=== PATIENT | female | born 1990 | race Caucasian/White ===

== ENCOUNTER 2019-09-28 20:53 | Observation (INO) | payer MEDICAID, SELFPAY ==
--- NOTE | ~2019-09-28 | CT_ITS ---
EXAMINATION: CT abdomen pelvis w con DATE: 09/28/2019 21:40 INDICATION: Right flank pain. History of urinary tract infections. TECHNIQUE: Computed tomography (CT) of the abdomen and pelvis was performed with 100 cc Omnipaque 350 intravenous contrast. Automated exposure control and iterative reconstruction technique were employe d. Exam dose: 801.23 mGy-cm total exam DLP. COMPARISON: 01/23/2018 CT abdomen pelvis FINDINGS: Normal heart size. No pericardial or pleural effusion. The lung bases are clear of infiltra te or consolidation. Focal hepatic steatosis near the fissure for the ligamentum teres. No hepatic space-occupying mass le momo. The gallbladder is unremarkable. No bile duct or pancreatic duct dilatation. No pancreatic mass lesion or calcification is evident. Normal splenic size. Normal morphology of the adrenal glands. Left renal scarring, likely due to chronic pyelonephritis. No left urinary tract calculus or hydroure teronephrosis. There is moderately severe right hydroureteronephrosis with thickening and enhancement of the right r enal pelvis and ureter. There is narrowing of the distal right ureter. There is thickening of the wal l of the urinary bladder and mild pericystic stranding. Findings suggest acute cystitis and possible right-sided ascending urinary tract infection. Distal right ureteral stricture is not excluded. Obstr uctive pyelonephrosis is considered a urologic emergency. Urology consultation is recommended. IUD in uterus. There are 2 peripherally enhancing approximately 1.3 cm left ovarian follicles. No bowel obstruction or intraperitoneal free air. There are bilateral L5 pars interarticularis defects. No suspicious osteolytic or osteoblastic lesion s are noted. IMPRESSION: Appendicitis and possible right ascending urinary tract infection. Cannot exclude distal right ureteral stricture with pyelonephrosis. Urologic urgent consultation is recommended. Left chronic pyelonephritis IUD in uterus Bilateral L5 pars interarticularis defects Reviewed, dictated and finalized at [facility]. Reviewed, dictated and finalized at [facility]. 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 Cannot exclude distal right ureteral stricture with pyelonephrosis. Urologic u rgent consultation is recommended. Left chronic pyelonephritis IUD in uterus Bilateral L5 pars interarticularis defects
--- NOTE | ~2019-09-28 | US_ITS ---
EXAMINATION: US renal BI EXAM DATE: 09/29/2019 11:09 INDICATION: Pyelonephritis. TECHNIQUE: Multiple grayscale and Doppler images of the kidneys were obtained (by a technologist who performed the scan) and subsequently reviewed. There is no prior study for comparison. FINDINGS: Right kidney: There is normal contour and echogenicity. It measures 12.0 x 5.1 x 6.0 centimeters. T here are no focal renal lesions identified. There is mild right-sided hydronephrosis. Left kidney: There is normal contour and echogenicity. It measures 12.5 x 4.1 x 4.6 centimeters. Th ere are no focal renal lesions identified. There is no hydronephrosis. Bladder unremarkable. IMPRESSION: 1. Mild right hydronephrosis. Reviewed, dictated and finalized at [facility]. Y LINE TECHNICIAN
[2019-09-28 20:55] VITALS: BP 133/91; PULSE 93; RESP 20; TEMP 36.8; O2SAT 100
--- NOTE | 2019-09-28 20:58 | ED.ABDPAIN ---
HPI - Abdominal Pain General Chief Complaint: Abdominal Pain Stated Complaint: R Flank Pain Time Seen by Provider: 09/28/19 20:58 Source: patient Mode of arrival: ambulatory Limitations: no limitations History of Present Illness HPI narrative: The pt is a 29 y/o female who presents to the ED with c/o rt flank pain that began 2 weeks ago. The pt states that she got a UTI 2 weeks ago but chose not to go to the doctors. Her sx have progressed and she is now very uncomfortable. The pt reports dysuria, nausea, dry heaving, and hematuria, but denies vomiting, cough, or nasal congestion. She has a PMHx of depression and anxiety. MD elicited complaint: flank pain (rt) Onset (ago): week(s) (2) Location: R flank Associated symptoms: nausea and other (dysuria, dry heaving, hematuria) Related Data Allergies Allergy/AdvReac Type Severity Reaction Status Date / Time ceftriaxone Allergy Unknown RASH Verified 04/22/18 11:10 Review of Systems Review of Systems: All systems reviewed & are unremarkable except as noted in HPI and below ENT: Denies nasal congestion Respiratory: Respiratory: Denies cough Gastrointestinal: Gastrointestinal: Reports nausea, Denies vomiting and Reports other (dry heaving) Genitourinary: Genitourinary: Reports hematuria, Reports dysuria and Reports flank pain (rt) PMFSH Past Medical History Medical History Anemia Anxiety Depression Hypoglycemia Surgical History Surgical History H/O myringoplasty History of total knee replacement (TKR) Hx of appendectomy Hx of section Family History Family History (Updated 09/28/19 @ 23:10 by Allan Suggs MD) Mother Colon cancer Social History Social History Smoking status: Never smoker Gender identity (if verbalized by the patient): Female Exam Const: General: healthy appearing and no acute distress Nutritional Appearance: well nourished HENMT: Mouth: Yes lip normal and Yes moist mucous membranes Eyes: Conjunctivae: conjunctivae normal Pupils: Equal, round and reactive pupils present Resp: Effort & Inspection: normal respiratory effort Auscultation: clear to auscultation bilaterally Cardio: Rate: regular rate Rhythm: regular rhythm Heart sounds: no murmurs GI: GI Palp: Yes Soft to palpation and Yes Tenderness to palpation present (GI) (suprapubic) Auscultation: normal bowel sounds : General: Yes CVA tenderness on the right Back/Spine/Pelvis: Back: CVA tenderness (rt) and other (full ROM) Skin: General skin exam: normal color, dry skin and other (warm) Neuro: General: patient oriented x3 Speech: normal speech Extrem: General: full ROM Psych: Mental Status: mental status grossly normal Affect: normal affect Course Vital Signs Vital signs: Vital Signs Temperature 36.8 C 09/28/19 20:55 Pulse Rate 93 09/28/19 20:55 Respiratory Rate 20 09/28/19 20:55 Blood Pressure 133/91 H 09/28/19 20:55 Pulse Oximetry 100 09/28/19 20:55 Temperature 36.8 C 09/28/19 20:55 Pulse Rate 89 09/28/19 23:20 Respiratory Rate 16 09/28/19 23:20 Blood Pressure 131/82 09/28/19 23:20 Pulse Oximetry 99 09/28/19 23:20 MDM - Abdominal Pain Differential Diagnosis Differential diagnosis: Likely calculus of kidney and other (pyelonephritis, UTI) Medical Records Attestation: I reviewed the patient's medical records. Lab Data Attestation: I reviewed the patient's lab results. Result diagrams: 09/28/19 21:21 09/28/19 21:21 Labs: Lab Results 09/28/19 09/28/19 09/28/19 Range/Units 21:21 21:21 21:24 WBC 11.7 H (4.5-10.0) K/mm3 RBC 4.94 (4.2-5.4) M/mm3 Hgb 14.9 (12.0-15.0) g/dL Hct 43.2 (37.0-47.0) % MCV 87.4 (80-100) fl MCH 30.2 (26-34) pg MCHC 34.5 (32-36) g/dl RDW 12.0 (11.5-14.5)
[2019-09-28 21:28] LABS: Basophils Percent Auto 0.3 % (0.2-1.2); Eosinophils Absolute Auto 0.1 K/mm3 (0-0.3); Eosinophils Percent Auto 0.8 % (0-4.4); Hematocrit 43.2 % (37.0-47.0); Hemoglobin 14.9 g/dL (12.0-15.0); Immature Granulocyte Absolute 0.04 K/mm3 (0.00-0.031); Immature Granulocyte Percent A 0.3 % (0-0.5); Lymphocytes Absolute Auto 2.22 K/mm3 (0.9-3.2); Mean Corpuscular HGB Conc 34.5 g/dl (32-36); Mean Corpuscular Hemoglobin 30.2 pg (26-34); Mean Corpuscular Volume 87.4 fl (80-100); Mean Platelet Volume 10.4 fl (7.4-10.4); Monocytes Percent Auto 8.4 % (2.6-8.5); Neutrophils Absolute Auto 8.3 K/mm3 (1.3-6.7); Neutrophils Percent Auto 71.2 % (45.5-73.1); Platelet Count Result 341 k/mm3 (150-375); Red Blood Count 4.94 M/mm3 (4.2-5.4); White Blood Count 11.7 K/mm3 (4.5-10.0)
[2019-09-28] MEDS: ONDANSETRON INJ 4 MG/2 ML VIAL IV PUSH (21:33)
[2019-09-28] MEDS: SODIUM CHLORIDE 0.9% IV 1,000 ML 999 ML IV CONT (21:33)
[2019-09-28] MEDS: KETOROLAC 30 MG/ML VIAL (*BKC) IV PUSH (21:33)
--- NOTE | 2019-09-28 21:34 | PC.NURSE ---
pt to ct via stretcher
[2019-09-28 21:39] LABS: Add Urine Microscopic? YES; Appearance Urine Cloudy (Clear); Bilirubin Urine Negative (Negative); Blood Urine 2+ (Negative); Color Urine Yellow (Yellow); Glucose Urine UA Negative (Negative); Ketones Urine Negative (Negative); Leukocyte Esterase Ur 3+ LEU/UL (Negative); Mucus Urine Rare /lpf; Nitrate Urine Positive (Negative); Protein Urine 3+ mg/dL (Negative); RBC Urine >75 /hpf (0-2); Specific Grav Ur 1.023 (1.001-1.035); Squamous Epithelial Cell Urine Many /hpf (Few); Urobilinogen Urine Negative mg/dL (<2.0); WBC Clumps Urine Present /HPF; WBC Urine >75 /hpf
[2019-09-28 21:40] LABS: Albumin Level 4.6 g/dL (3.5-5.1); Alkaline Phosphatase 50 U/L (38-126); Aspartate Amino Transferase 22 U/L (14-36); Bilirubin,Total 0.6 mg/dL (0.2-1.3); Blood Urea Nitrogen 11 mg/dL (7-17); Calcium 9.4 mg/dL (8.4-10.2); Carbon Dioxide 17 mmol/L (22-30); Chloride 106 mmol/L (98-107); Estimated Glomerular Filt Rate > 60; Glucose 117 mg/dL (65-105); Potassium 3.8 mmol/L (3.4-5.0); Sodium 139 mmol/L (137-145)
[2019-09-28 21:47] LABS: Alanine Aminotransferase 29 U/L (4-35)
[2019-09-28 21:58] VITALS: BP 122/82; PULSE 83; RESP 15; O2SAT 99
[2019-09-28 23:00] VITALS: BP 129/82; PULSE 82; RESP 16; O2SAT 99
--- NOTE | 2019-09-28 23:01 | PM.IMHP ---
H&P: HPI History of Present Illness Chief complaint: Right flank pain and dysuria for 2 weeks+ Narrative: This is a 29 year old female with known history of prevoius UTIs, kidney infections and renal stones who presented to the hospital with a complaint of 2 weeks of urinary symptoms including burning urination and urinary hesitancy. She started to develop right sided flank pain and has noticed decreased urine output and hematuria. Associated symptoms include fever, nausea, and decreased appetite. The patient was evaluated in the ER tonight and CT abd/pelvis was obtained which demonstrated an ascending urinary tract infection versus ureteral stricture with obstructive pyonephrosis. The patent has been started on IV antibiotics in the ER tonight and Urology was consulted by the ER provider. Urology has asked that we admit the patient to the hospital and they will evaluate the patient in the mornini. She has no other complaints tonight. Review of Systems Review of Systems: All systems reviewed & are unremarkable except as noted in HPI and below PMFSH Past Medical History Medical History Anemia Anxiety Depression Hypoglycemia Surgical History Surgical History H/O myringoplasty History of total knee replacement (TKR) Hx of appendectomy Hx of section Family History Family History Mother Colon cancer Social History Social History Smoking status: Current some day smoker Tobacco type: e-cigarettes Alcohol intake: never Substance use: never Gender identity (if verbalized by the patient): Female Spiritual care concerns: No Agree to blood products: Yes Meds Home Medications and Allergies Home Medications Medication Instructions Recorded Confirmed Type Zantac 150 mg PO BID 09/29/19 09/29/19 History buspirone 15 mg PO TID 09/29/19 09/29/19 History citalopram 40 mg PO DAILY 09/29/19 09/29/19 History cyanocobalamin (vitamin B-12) 1,000 mcg PO DAILY 09/29/19 09/29/19 History famotidine 20 mg PO BID 09/29/19 09/29/19 History hydroxyzine HCl 50 mg PO HS 09/29/19 09/29/19 History prazosin 1 mg PO QID 09/29/19 09/29/19 History Allergies Allergy/AdvReac Type Severity Reaction Status Date / Time ceftriaxone Allergy Unknown RASH Verified 04/22/18 11:10 Vital Signs Vital Signs - 24 hr 09/28/19 20:55 09/28/19 21:58 Temperature 36.8 C Pulse Rate 93 60 Respiratory Rate 20 15 Blood Pressure 133/91 H 122/82 Pulse Oximetry 100 99 Exam Const: General: cooperative, healthy appearing, no acute distress, alert and awake Nutritional Appearance: well nourished Orientation/consciousness: patient oriented x3 HENMT: Head: normal to inspection General nose exam: Normal external nose present Face and sinus: normal facial exam Mouth: Yes Normal oral and palatal mucosa present and Yes oropharynx normal Eyes: Pupils: Equal, round and reactive pupils present EOM: EOMs intact bilaterally Neck: Neck: supple and no JVD Thyroid: thyroid normal Lymphatic: lymphadenopathy not noted Resp: Effort & Inspection: normal respiratory effort Auscultation: clear to auscultation bilaterally Cardio: Rate: regular rate Rhythm: regular rhythm Heart sounds: no murmurs GI: Inspection: normal to inspection Auscultation: normal bowel sounds Back/Spine/Pelvis: Back: CVA tenderness (right side+) Skin: General skin exam: normal color and no rashes or lesions noted Neuro: General: patient oriented x3 Cranial nerves: Yes CN's II-XII intact bilaterally and Yes Equal, round and reactive pupils present Speech: normal speech Motor exam (neuro): 5/5 motor strength present throughout Sensory Exam: normal sensation Extrem: General: normal to inspection and no edema Psych: Mental Status: mental statu
[2019-09-28 23:20] VITALS: BP 131/82; PULSE 89; RESP 16; O2SAT 99
[2019-09-28 23:40] VITALS: BP 110/58; PULSE 81; RESP 16; TEMP 36.7; O2SAT 100; BMI 34.0
--- NOTE | 2019-09-28 23:56 | PC.NURSE ---
This patient, Dipti Downs, was admitted to Medical Room 253-01. Patient/family oriented to hospital policies and general routines including ID bracelet, bed and alarms, visiting hours, pain management, procedures, bathroom and other care routines, personal items, smoking policy, room service/diet, and visiting hours. Valuables list has been completed. Information on how to activate the Rapid Response Team has been discussed. Patient/Family are encouraged to report perceived risks to care and to ask questions if they do not understand what they are told or what they should do.
[2019-09-29] MEDS: PRAZOSIN HCL 1 MG CAPSULE PO ×5 (01:40→21:23)
[2019-09-29] MEDS: LACTATED RINGERS 1,000 ML 125 ML IV CONT ×3 (01:49→16:03)
[2019-09-29] MEDS: MELATONIN 3 MG TABLET PO ×2 (01:49→21:22)
[2019-09-29] MEDS: busPIRone HCL 5 MG TABLET PO ×4 (01:50→17:37)
[2019-09-29] MEDS: hydrOXYzine HCL 25 MG TABLET 50 MG PO (01:50)
[2019-09-29] MEDS: busPIRone HCL 10 MG TABLET PO ×4 (01:50→17:37)
[2019-09-29 05:23] LABS: Basophils Percent Auto 0.2 % (0.2-1.2); Eosinophils Absolute Auto 0.1 K/mm3 (0-0.3); Eosinophils Percent Auto 0.9 % (0-4.4); Hematocrit 39.4 % (37.0-47.0); Hemoglobin 13.3 g/dL (12.0-15.0); Immature Granulocyte Absolute 0.04 K/mm3 (0.00-0.031); Immature Granulocyte Percent A 0.5 % (0-0.5); Lymphocytes Absolute Auto 2.76 K/mm3 (0.9-3.2); Lymphocytes Percent Auto 32.4 % (18.3-44.2); Mean Corpuscular HGB Conc 33.8 g/dl (32-36); Mean Corpuscular Volume 88.7 fl (80-100); Mean Platelet Volume 10.5 fl (7.4-10.4); Monocytes Percent Auto 11.3 % (2.6-8.5); Neutrophils Absolute Auto 4.7 K/mm3 (1.3-6.7); Neutrophils Percent Auto 54.7 % (45.5-73.1); Platelet Count Result 264 k/mm3 (150-375); Red Blood Count 4.44 M/mm3 (4.2-5.4); Red Cell Distribution Width 11.9 % (11.5-14.5); White Blood Count 8.5 K/mm3 (4.5-10.0)
[2019-09-29 05:33] LABS: Blood Urea Nitrogen 10 mg/dL (7-17); Calcium 8.5 mg/dL (8.4-10.2); Carbon Dioxide 22 mmol/L (22-30); Chloride 106 mmol/L (98-107); Estimated CRCL calculation 94 ml/min; Estimated Glomerular Filt Rate > 60; Glucose 98 mg/dL (65-105); Sodium 137 mmol/L (137-145)
[2019-09-29] MEDS: FAMOTIDINE 20 MG TABLET PO ×2 (09:32→17:37)
[2019-09-29] MEDS: CYANOCOBALAMIN 1,000 MCG TABLET 1000 MCG PO (09:33)
[2019-09-29] MEDS: ONDANSETRON INJ 4 MG/2 ML VIAL IV PUSH ×2 (11:02→17:56)
--- NOTE | 2019-09-29 11:15 | WPDURCON ---
Assessment and Plan Assessment and plan (1) Hydronephrosis: Code(s): N13.30 - Unspecified hydronephrosis Status: Acute Assessment and Plan: Renal ultrasound to be repeated this morning. Will also get a Lasix renal scan to look for obstruction. At present she seems very stable. She is afebrile. She has a normal white blood cell count. Depending on results of diagnostic imaging may consider right ureteral stent today. Other options would be to observe her on IV antibiotics if she had a similar episode 4 years ago which resolved without intervention. (2) Abnormal urinalysis: Code(s): R82.90 - Unspecified abnormal findings in urine Status: Acute Assessment and Plan: Urine blood cultures are pending. She should be maintained on broad-spectrum antibiotics pending his cultures. Urology Consult Note HPI Date Seen: 09/29/19 Requesting Physician: SHARON Moore Primary Care Provider: UNKNOWN,DOCTOR Consult Narrative Narrative: Dipti Downs is a 29 year old female I am seeing at the request of the hospitalist service for her right hydronephrosis. She has had a weak history of mild dysuria as well as urgency and frequency which later turned into right flank pain. This prompted in visit to the emergency room. A CT scan was done which showed a right hydronephrosis without obstructing lesion. She also had ureteral thickening consistent with possible infection. She states 3 days ago she had a temperature of 101? but has not had a fever since. She endorses some urinary symptoms including dysuria as well as urgency and frequency. Shows similar episode 4 years ago with right hydronephrosis. She states that she was in the hospital and placed on IV antibiotics and all issues resolved over a few days. No intervention was needed. She also has history of stone disease which have all passed spontaneously. She does not get frequent urinary tract infections. She states she gets 1 every 1-2 years. She currently appears very stable. She is afebrile and has a normal white blood cell count. Review of Systems Review of Systems: All systems reviewed & are unremarkable except as noted in HPI and below Constitutional: Constitutional: Reports as per HPI Eyes: Comments: She wears glasses Respiratory: Respiratory: Reports no additional respiratory complaints Genitourinary: Genitourinary: Reports nocturia, Reports dysuria and Reports flank pain PMFSH Past Medical History Medical History Anemia Anxiety Depression Hypoglycemia Surgical History Surgical History H/O myringoplasty History of total knee replacement (TKR) Hx of appendectomy Hx of section Family History Family History Mother Colon cancer Social History Social History Smoking status: Current some day smoker Tobacco type: e-cigarettes Alcohol intake: never Substance use: never Gender identity (if verbalized by the patient): Female Spiritual care concerns: No Agree to blood products: Yes Meds Home Medications and Allergies Home Medications Medication Instructions Recorded Confirmed Type Zantac 150 mg PO BID 09/29/19 09/29/19 History buspirone 15 mg PO TID 09/29/19 09/29/19 History citalopram 40 mg PO DAILY 09/29/19 09/29/19 History cyanocobalamin (vitamin B-12) 1,000 mcg PO DAILY 09/29/19 09/29/19 History famotidine 20 mg PO BID 09/29/19 09/29/19 History hydroxyzine HCl 50 mg PO HS 09/29/19 09/29/19 History prazosin 1 mg PO QID 09/29/19 09/29/19 History Allergies Allergy/AdvReac Type Severity Reaction Status Date / Time ceftriaxone Allergy Unknown RASH Verified 04/22/18 11:10 Vital Signs Vital Signs - 24 hr 09/28/19 20:55 09/28/19 21:58 09/28/19 23:00 Temperature 98.2 F
[2019-09-29 11:30] VITALS: PULSE 64
[2019-09-29] MEDS: CITALOPRAM HYDROBROMIDE 20 MG TABLET 40 MG PO (11:58)
[2019-09-29 12:00] VITALS: PULSE 73
[2019-09-29 14:00] VITALS: BP 105/85; PULSE 72; RESP 16; TEMP 36.6; O2SAT 99
--- NOTE | 2019-09-29 14:31 | PM.IMPN ---
Progress Note: A&P Assessment and Plan (1) Pyelonephritis: Code(s): N12 - Tubulo-interstitial nephritis, not specified as acute or chronic Status: Suspected Assessment and Plan: Abnormal urinalysis with evidence of possible right ascending urinary tract infection on imaging. On arrival, CT showed moderately severe right hydronephrosis, now renal ultrasound this morning reads mild right hydronephrosis. Urology consulted - appreciate Dr Balderas's recommendations. Patient is allergic to Rocephin and was started on IV levaquin in the ED. Continue IV levaquin while awaiting urine and blood cultures. Unfortunately blood cultures were obtained after initiation of antibiotics which may alter results. (2) Hydronephrosis: Qualifiers: Hydronephrosis type: unspecified Qualified Code(s): N13.30 - Unspecified hydronephrosis Code(s): N13.30 - Unspecified hydronephrosis Status: Acute Assessment and Plan: See above. Improved after IV fluids and antibiotic initiation. (3) Depression: Qualifiers: Depression Type: unspecified Qualified Code(s): F32.9 - Major depressive disorder, single episode, unspecified Code(s): F32.9 - Major depressive disorder, single episode, unspecified Status: Chronic Assessment and Plan: Continue home buspar and celexa. Monitor telemetry due to quinolone use. Subjective Date/time seen: 09/29/19 1230 Interval history: Ms. Mcclure is a 29yo F admitted with UTI and possible pyelonephritis. She reports feeling tired today. R flank pain is still present but improved. She has not had much oral intake so far today and has had nausea and some vomiting. She denies chest pain, shortness of breath, or calf tenderness. Review of Systems Review of Systems: Narrative: Twelve systems were reviewed with pertinent positives and negatives as per HPI. Exam Narrative: Exam Narrative: General: Female resting supine in bed in no acute distress. HEENT: Normocephalic, EOMI, oral mucosa moist. Cardiovascular: Rate and rhythm are regular. Respiratory: Lungs clear to auscultation all jeter. Non-labored breathing. Abdomen: Soft, non-distended, bowel sounds present, R sided abdominal and R flank tenderness to palpation without guarding. Extremities: Peripheral pulses intact. No edema or pain to palpation. Neuro: No focal neurological deficits. Speech is clear. Objective Data Vital Signs Vital Signs: Last Vital Signs Temp 97.9 F 09/29/19 14:00 Pulse 72 09/29/19 14:00 Resp 16 09/29/19 14:00 BP 105/85 09/29/19 14:00 Pulse Ox 99 09/29/19 14:00 Intake/Output Intake/Output: Intake & Output 09/26/19 09/27/19 09/28/19 09/29/19 23:59 23:59 23:59 23:59 Intake Total 150 1250 Output Total 400 Balance 150 850 Meds/Results Medications: Active Medications Generic Name Dose Route Start Last Admin Trade Name Tadeoq PRN Reason Stop Dose Admin Buspirone HCl 10 mg 09/29/19 01:45 09/29/19 13:06 Buspar PO 10 mg TID GENNARO Administration Buspirone HCl 5 mg 09/29/19 01:45 09/29/19 13:06 Buspar PO 5 mg TID GENNARO Administration Citalopram Hydrobromide 40 mg 09/30/19 09:00 Celexa PO QAM GENNARO Cyanocobalamin 1,000 mcg 09/29/19 09:00 09/29/19 09:33 Vitamin B-12 Tab PO 1,000 mcg DAILY GENNARO Administration Famotidine 20 mg 09/29/19 09:00 09/29/19 09:32 Pepcid PO 20 mg BID GENNARO Administration Hydroxyzine HCl 50 mg 09/29/19 01:40 09/29/19 01:50 Atarax Tablet PO 50 mg HS GENNARO Administration Lactated Ringer's 1,000 mls @ 125 mls/hr 09/28/19 22:35 09/29/19 07:45 Lr - Lactated Ringers Iv IV CONT 125 mls/hr .Q8H GENNARO Administration Levofloxacin/Dextrose 750 mg in 150 mls @ 100 mls/hr 09/29/19 21:00 Levaquin 750 Mg/D5w 150 Ml IVPB Q24H GENNARO Melatonin 3 mg 09/29/19 21:0
[2019-09-29 16:00] VITALS: PULSE 79
[2019-09-29 20:00] VITALS: PULSE 77
[2019-09-29] MEDS: KETOROLAC 15 MG/ML VIAL (*BKC) IV PUSH (21:22)
[2019-09-29 22:00] VITALS: BP 116/57; PULSE 76; RESP 20; TEMP 36.8; O2SAT 99
[2019-09-30 00:20] VITALS: PULSE 78
[2019-09-30] MEDS: LACTATED RINGERS 1,000 ML 125 ML IV CONT ×2 (00:26→08:10)
[2019-09-30 04:00] VITALS: PULSE 70
[2019-09-30 05:49] LABS: Hematocrit 38.3 % (37.0-47.0); Hemoglobin 12.9 g/dL (12.0-15.0); Mean Corpuscular HGB Conc 33.7 g/dl (32-36); Mean Corpuscular Hemoglobin 30.1 pg (26-34); Mean Corpuscular Volume 89.3 fl (80-100); Mean Platelet Volume 10.7 fl (7.4-10.4); Platelet Count Result 243 k/mm3 (150-375); Red Blood Count 4.29 M/mm3 (4.2-5.4); Red Cell Distribution Width 12.2 % (11.5-14.5); White Blood Count 7.7 K/mm3 (4.5-10.0)
[2019-09-30 06:00] VITALS: BP 113/60; PULSE 73; RESP 20; TEMP 36.2; O2SAT 99
[2019-09-30] MEDS: ONDANSETRON INJ 4 MG/2 ML VIAL IV PUSH (06:20)
[2019-09-30 06:28] LABS: Blood Urea Nitrogen 12 mg/dL (7-17); Calcium 8.6 mg/dL (8.4-10.2); Carbon Dioxide 26 mmol/L (22-30); Chloride 105 mmol/L (98-107); Estimated CRCL calculation 94 ml/min; Estimated Glomerular Filt Rate > 60; Glucose 91 mg/dL (65-105); Magnesium 1.9 mg/dL (1.6-2.3); Phosphorus 3.9 mg/dL (2.5-4.5); Potassium 4.3 mmol/L (3.4-5.0); Sodium 138 mmol/L (137-145)
[2019-09-30 08:00] VITALS: PULSE 79
[2019-09-30] MEDS: PRAZOSIN HCL 1 MG CAPSULE PO ×2 (08:12→13:40)
[2019-09-30] MEDS: CITALOPRAM HYDROBROMIDE 20 MG TABLET 40 MG PO (08:12)
[2019-09-30] MEDS: CYANOCOBALAMIN 1,000 MCG TABLET 1000 MCG PO (08:12)
[2019-09-30] MEDS: busPIRone HCL 5 MG TABLET PO ×2 (08:12→13:40)
[2019-09-30] MEDS: busPIRone HCL 10 MG TABLET PO ×2 (08:12→13:40)
[2019-09-30] MEDS: FAMOTIDINE 20 MG TABLET PO (08:13)
[2019-09-30 14:00] VITALS: BP 95/46; PULSE 71; RESP 18; TEMP 37.1; O2SAT 98
--- NOTE | 2019-09-30 14:18 | PM.DS ---
DS: Diagnosis Admitting Diagnosis Admitting Diagnosis: Chronic obstructive pyelonephritis Discharge Diagnosis (1) Pyelonephritis: Code(s): N12 - Tubulo-interstitial nephritis, not specified as acute or chronic Status: Suspected (2) Hydronephrosis: Qualifiers: Hydronephrosis type: unspecified Qualified Code(s): N13.30 - Unspecified hydronephrosis Code(s): N13.30 - Unspecified hydronephrosis Status: Acute (3) Depression: Qualifiers: Depression Type: unspecified Qualified Code(s): F32.9 - Major depressive disorder, single episode, unspecified Code(s): F32.9 - Major depressive disorder, single episode, unspecified Status: Chronic DS: Summary Hospital Course Reason for hospitalization: Pyelonephritis Hospital Course: Patient is a 29-year-old female who presented emergency room for abdominal pain/flank pain. Vitals in the ER were temperature 36.8?, pulse 93, respiratory rate 20, blood pressure 133/91, pulse ox 100 on room air. Initial white blood cell count 11.7. BMP within normal limits exception of CO2 which was low 17 which improved with treatment. Cystitis with possible right ascending UTI/pyelonephritis. There is a possibility of stricture/obstruction so she got renal ultrasound the next day which showed improved hydronephrosis with no stricture. The patient was started on Levaquin and received 2 days of IV antibiotics. Her blood culture had no growth to date it at discharge and will be monitored until finalized. Because of her citalopram she was discharged on Bactrim x 10 days. She was educated about had a prevent UTIs. Overall the patient's pain had improved and she was ready for discharge. She was educated about the worrisome signs and symptoms come back to emergency room for and was discharged in stable condition. Status at Discharge Functional status at discharge: independent ambulation Overall status at discharge: patient is back to baseline Time Spent with Patient Time attestation: Total time spent providing and/or coordinating discharge services:34 min Time spent: Greater than 30 minutes Exam Narrative: Exam Narrative: General: Well developed well nourished patient resting comfortably on the couch in NAD HEENT: normocephalic Neck: supple Neuro: Alert and oriented x4 CV:RRR. No telemetry abnormalities Resp:CTA Abd: Soft, non distended. Some mild pain to the right lower quadrant. Positive bowel sounds Extremities: No swelling, erythema, or pain to palpation. DS: Data Data Completed and Pending Labs on day of discharge: Labs from last 24 hours 09/30/19 09/30/19 05:14 05:14 WBC 7.7 RBC 4.29 Hgb 12.9 Hct 38.3 MCV 89.3 MCH 30.1 MCHC 33.7 RDW 12.2 Plt Count 243 MPV 10.7 H Sodium 138 Potassium 4.3 Chloride 105 Carbon Dioxide 26 BUN 12 Creatinine 0.80 Estim Creat Clear Calc 94 Estimated GFR > 60 Glucose 91 Calcium 8.6 Phosphorus 3.9 Magnesium 1.9 Preliminary micro results at discharge 09/29/19 08:08 Blood Culture - Preliminary Blood 09/29/19 10:36 Blood Culture - Preliminary Blood Discharge Plan Discharge Attending physician on discharge: Pj Sanchez Consulting providers: Abisai Leo Discharging Clinician: Winnie Thomas Patient Disposition: Home, Self-Care Activity: as tolerated Diet: regular Discharge Instructions: -Take all of your antibiotic even if you start to feel better -follow up with your primary care doctor in 1-2 weeks after this stay -continue ibuprofen for pain. -Worrisome signs and symptoms to come back to the ER for: persistent fevers, chest pain, shortness of breath, progressive significant weakness, or any other worrisome symptom. Patient Instructions: Antibiotic Form Stand Alone Forms: General Discharge Information, Work/School Release IP Follow-up/Referrals: UNKNOWN,DOCTOR [Primary Care Pr
--- NOTE | 2019-10-07 11:03 | PC.NURSE ---
Blood cx is negative.
== END 2019-09-30 16:17 | disposition home or self-care (01) ==
LOC: ANHED 21:10 → ANH2MED 22:51
PROVIDERS: Physician Assistant; Admitting Provider Family Medicine; Emergency Provider Emergency Medicine; Visit Provider Physician Assistant
DX: N12 Tubulo-interstitial nephritis, not specified as acute or chronic (principal); N13.30 Unspecified hydronephrosis; F32.9 Major depressive disorder, single episode, unspecified; F41.9 Anxiety disorder, unspecified; Z96.659 Presence of unspecified artificial knee joint
CPT/HCPCS: 36415; 74177; 76775; 78708; 80048; 80053; 81001; 81025; 83735; 84100; 85025; 85027; 87040; 87077; 87086; 87088; 87186; 96361; 96365; 96366; 96374; 96375; 96376; 99285; A9270; A9562; G0378; G0379; J1885; J1956; J2405; J7030; J7120; Q9967